=== PATIENT | male | born 1980 | race Two or more races ===

== ENCOUNTER 2019-09-12 14:11 | Inpatient (IN) | payer MEDICAID ==
[~2019-09-12] VITALS: Ht 154.9 cm; Wt 73.3 kg
--- NOTE | 2019-09-12 14:29 | NUR ---
PT AAOX4. AMBULATORY. PT C/O UPPER BACK PAIN 03/20 SHARP. RR EVEN AND UNLABORED. NO ACUTE DISTRESS NOTED.
--- NOTE | 2019-09-12 14:48 | NUR ---
Patient is resting comfortably in bed. Easily aroused. VSS.
--- NOTE | 2019-09-12 15:11 | NUR ---
PAGED CARDIO TO CALL US BACK
--- NOTE | 2019-09-12 15:19 | NUR ---
Diesel Mechanic at bedside for blood collection
[2019-09-12 15:22] LABS: BASOPHILS % (AUTO) 0.6 % (0.0-2.0); EOSINOPHILS % (AUTO) 0.9 % (0.0-6.0); HEMATOCRIT 48 % (39-51); HEMOGLOBIN 16.2 g/dL (13.5-17.5); LYMPHOCYTES # (AUTO) 1.3 /CMM (0.8-4.8); LYMPHOCYTES % (AUTO) 21.6 % (20.0-44.0); MEAN CORPUSCULAR HGB CONC 34 g/dl (31.0-36.0); MEAN CORPUSCULAR VOLUME 91 fL (80-96); MONOCYTES # (AUTO) 0.5 /CMM (0.1-1.30); MONOCYTES % (AUTO) 7.7 % (2.0-12.0); NEUTROPHILS # (AUTO) 4.1 /CMM (1.8-8.9); NEUTROPHILS % (AUTO) 69.2 % (43.0-81.0); PLATELET COUNT (AUTO) 240 /CMM (150-450)
--- NOTE | 2019-09-12 15:24 | NUR ---
Rad at bedside for Xray.
[2019-09-12 15:31] LABS: CALCIUM, SERUM 9.9 mg/dL (8.5-10.1); CARBON DIOXIDE 29 mmol/L (21-32); CHLORIDE 105 mmol/L (98-107); GLUCOSE 107 mg/dL (74-106); POTASSIUM 4.2 mmol/L (3.5-5.1); SODIUM SERUM 141 mmol/L (136-145); UREA NITROGEN, BLOOD 13 mg/dL (7-18)
--- NOTE | 2019-09-12 15:32 | NUR ---
AT [facility] SPEAKING TO PT.
--- NOTE | 2019-09-12 16:04 | NUR ---
URINE COLLECTED AND SENT TO LAB
--- NOTE | 2019-09-12 16:04 | NUR ---
PT DEDRA TO CT
[2019-09-12] MEDS ORDERED: IV NS 0.9% 250 ML IV ONE (16:09)
[2019-09-12] MEDS ORDERED: IOHEXOL-350 100 ML VIAL IV ONE (16:09)
[2019-09-12] MEDS ORDERED: CT SWABBABLE VALVE TRANS SET 1 EA INFUS.SET MC ONE (16:09)
--- NOTE | 2019-09-12 16:30 | NUR ---
PT IN BED RESTING. EASILY AROUSED. VSS.
--- NOTE | 2019-09-12 16:34 | NUR ---
PAGED ALEJO [phone] PER [facility]
[2019-09-12] MEDS ORDERED: NITROGLYCERIN PACKET 1 GM PACKET TOP ONE (17:00)
[2019-09-12] MEDS ORDERED: ASPIRIN 81 MG TAB.CHEW PO ONE (17:00)
[2019-09-12] MEDS ORDERED: NITROGLYCERIN PACKET 1 GM PACKET ONE (17:00)
[2019-09-12] MEDS ORDERED: ASPIRIN EC 81 MG TABLET.DR PO ONE (17:00)
--- NOTE | 2019-09-12 17:00 | NUR ---
FAXED EKG PER REQUEST TO [facility] [phone] SPOKE WITH [facility] @ [facility]
--- NOTE | 2019-09-12 17:00 | NUR ---
CALLED [facility] [phone] FAXED FACE SHEET [phone] SPOLE WITH [facility]
--- NOTE | 2019-09-12 17:04 | NUR ---
CONFIRMED THAT THEY RECIEVED FAX OF EKG AND WILL CALL US IN 5-10MINS
--- NOTE | 2019-09-12 17:16 | NUR ---
Patient is resting comfortably in bed. Easily aroused. VSS.
--- NOTE | 2019-09-12 17:19 | NUR ---
CALLED [facility] AGAIN AND THEY ARE REACHING [facility]
--- NOTE | 2019-09-12 17:25 | NUR ---
[facility] called for possible transfer, unable to accept because they are closed to stemi
--- NOTE | 2019-09-12 17:29 | NUR ---
CALL RECEIVED FROM ELIE RONDON, UNABLE TO ACCEPT BECAUSE DR CARMEN,CARDIO, SAID THAT IT'S NOT A STEMI AFTER EVALUATING EKG AND LABS SENT
--- NOTE | 2019-09-12 17:41 | NUR ---
PT RESTING COMFORTABLY. VSS. DAUGHTER AT BEDSIDE.
--- NOTE | 2019-09-12 17:45 | NUR ---
SUBMITTED MOVE SHEET
--- NOTE | 2019-09-12 18:15 | NUR ---
Patient is resting comfortably in bed. Easily aroused. VSS.
--- NOTE | 2019-09-12 19:04 | NUR ---
PT AMBULATED TO THE RESTROOM.
--- NOTE | 2019-09-12 19:44 | NUR ---
PT RESTING COMFORTABLY. DAUGHTER AT BEDSIDE.
--- NOTE | 2019-09-12 20:21 | NUR ---
BED ASSIGNMENT [id number]
[2019-09-12] MEDS ORDERED: ONDANSETRON HCL/PF 4 MG/2 ML VIAL IVP PRN (20:30)
[2019-09-12] MEDS ORDERED: MAG HYDROX/AL HYDROX/SIMETH 30 ML UDC PO PRN (20:30)
[2019-09-12] MEDS ORDERED: NITROGLYCERIN 0.4 MG/TAB BOTTLE SL PRN (20:30)
[2019-09-12] MEDS ORDERED: ACETAMINOPHEN 325 MG TABLET PO PRN (20:30)
--- NOTE | 2019-09-12 20:40 | NUR ---
REPORT GIVEN TO ASIA RONDON FOR PHIL.
[2019-09-12 21:00] VITALS: BP_SYST 121; BP_DIAS 70; BP_DIAS 74
[2019-09-12] MEDS ORDERED: ENOXAPARIN SODIUM 40 MG/0.4 ML DISP.SYRIN SQ SCH (21:00)
--- NOTE | 2019-09-12 21:00 | NUR ---
TELE/RN ADMITTING NOTES: REPORT GIVEN BY PA AT 2039. PATIENT ARRIVED TO THE UNIT AT 2100 VIA GURNEY ACCOMPANIED BY ER STAFF WITH ACLS PROTOCOL. PATIENT IS IN STABLE CONDITION. NO SOB NOTED, NO ACUTE S/S OF ACUTE DISTRESS. BREATHING EVEN AND UNLABORED. PATIENT IS AMBULATORY. NO COMPLAINS OF PAIN OR DISCOMFORT AT THIS TIME. VS STABLE AND WNL. DAUGHTER IS PRESENT AT THE BED SIDE. PATIENT IS A/OX4. PATIENT IS VERBALLY RESPONSIVE, ABLE TO MAKE NEEDS KNOWN. ANGOLAN SPEAKING, DAUGHTER HELPS TO TRANSLATE. ON TELE MONITORING WITH READING OF SR AND PAC WITH HR ON THE 70S. EXPLAINED THE PLAN OF CARE TO THE PATIENT. ON CARDIAC DIET. IV ACCESS IN ON THE RIGHT FA #20G AND RIGHT AC #20G. INTACT, PATENT, AND FLUSHING WELL. SKIN ASSESSMENT DONE, SKIN IS INTACT. BELONGINGS LIST CHECKED BY AUTOMATED TELLER MANAGER. DAUGHTER STATED THAT WILL TAKE EVERYTHING HOME WHEN SHE GETS TO THE HOSPITAL. SAFETY MEASURES ARE INITIATED, BED IS IN THE LOWEST POSITION, LOCKED, WITH HOB ELEVATED, SIDE RAILS UPX2. KEPT PATIENT WARM AND COMFORTABLE FOR NOW. ALL NURSING NEEDS MET AND PROVIDED AT THIS TIME. CALL LIGHT IS WITHIN REACH. WILL CONTINUE MONITORING PATIENT ACCORDINGLY.
--- NOTE | 2019-09-12 21:08 | NUR ---
PT TRANSFERED PER ACLS PROTOCOL.
[2019-09-12] MEDS ORDERED: SIMVASTATIN 20 MG TABLET PO SCH (22:00)
[2019-09-13] VITALS: BP 112/69
[2019-09-13 00:01] VITALS: BP 112/69
[2019-09-13 04:00] VITALS: BP 122/76
[2019-09-13 04:45] VITALS: BP 122/76
--- NOTE | 2019-09-13 06:30 | NUR ---
TELE/RN CLOSING NOTES: PATIENT IS IN STABLE CONDITION. A/OX4. NO SOB NOTED, NO ACUTE S/S OF ACUTE DISTRESS. BREATHING EVEN AND UNLABORED. NO COMPLAINS OF PAIN OR DISCOMFORT AT THIS TIME. VS STABLE AND WNL. PATIENT IS VERBALLY RESPONSIVE, ABLE TO MAKE NEEDS KNOWN. ON TELE MONITORING WITH READING OF SR AND PAC WITH HR ON THE 70S. IV ACCESS IN ON THE RIGHT FA #20G AND RIGHT AC #20G. INTACT, PATENT, AND FLUSHING WELL.ALL DUE MEDS GIVEN ORDERED, TOLERATED WELL. SAFETY MEASURES ARE INITIATED, BED IS IN THE LOWEST POSITION, LOCKED, WITH HOB ELEVATED, SIDE RAILS UPX2. KEPT PATIENT WARM AND COMFORTABLE FOR NOW. ALL NURSING NEEDS MET AND PROVIDED. CALL LIGHT IS WITHIN REACH. WILL ENDORSE TO DAY SHIFT NURSE FOR PHIL.
[2019-09-13 07:58] LABS: CALCIUM, SERUM 8.8 mg/dL (8.5-10.1); CREATININE 0.9 mg/dL (0.6-1.3); MAGNESIUM 2.1 mg/dL (1.8-2.4)
--- NOTE | 2019-09-13 08:00 | NUR ---
TELE/RN AM NOTES: PATIENT A/OX4. NO SOB NOTED, NO ACUTE S/S OF ACUTE DISTRESS. BREATHING EVEN AND UNLABORED. NO COMPLAINS OF PAIN OR DISCOMFORT AT THIS TIME. VS STABLE AND WNL. PATIENT IS VERBALLY RESPONSIVE, ABLE TO MAKE NEEDS KNOWN. ON TELE MONITORING WITH READING OF SR WITH HR 70S. IV ACCESS IN ON THE RIGHT FA #20G AND RIGHT AC #20G. INTACT, PATENT, AND FLUSHING WELL.WITH BRP.DAUGHTER AT BEDSIDE. SAFETY MEASURES ARE INITIATED, BED IS IN THE LOWEST POSITION, LOCKED, WITH HOB ELEVATED, SIDE RAILS UPX2. KEPT PATIENT WARM AND COMFORTABLE FOR NOW. CALL LIGHT IS WITHIN REACH.
[2019-09-13] MEDS ORDERED: ASPIRIN 81 MG TAB.CHEW PO SCH (09:00)
[2019-09-13] MEDS ORDERED: ASPIRIN 325 MG TABLET PO SCH (09:00)
[2019-09-13] MEDS ORDERED: CT SWABBABLE VALVE TRANS SET 1 EA INFUS.SET MC ONE (11:15)
[2019-09-13] MEDS ORDERED: IV NS 0.9% 250 ML IV ONE (11:15)
[2019-09-13] MEDS ORDERED: IOHEXOL-350 100 ML VIAL IV ONE (11:15)
[2019-09-13] MEDS ORDERED: NITROGLYCERIN 0.4 MG/TAB BOTTLE ONE (11:15)
[2019-09-13] MEDS ORDERED: METOPROLOL TARTRATE INJ 5 MG/5 ML AMPUL ONE ×4 (11:15→12:13)
[2019-09-13] MEDS ORDERED: IV NS 0.9% 500 ML IV ONE (13:30)
[2019-09-13] MEDS ORDERED: NITROGLYCERIN 0.4 MG/TAB BOTTLE SL ONE (13:30)
[2019-09-13] MEDS ORDERED: METOPROLOL TARTRATE INJ 5 MG/5 ML AMPUL IVP ONE (13:30)
--- NOTE | 2019-09-13 18:20 | NUR ---
DISCHARGED PT HOME WITH STABLE V/S.IV H/L TO RFA AND RT AC REMOVED.DENIES ANY CHEST PAIN OR DISTRESS.ACCOMPANIED BY HIS .DISCHARGE INSTRUCTIONS AND INSTRUCTED PT TO F/U CT [facility] IN 1 YR.
== END 2019-09-13 18:26 | disposition home or self-care (01) | DRG 203 ==
LOC: ER 14:11 → TELE 20:27
PROVIDERS: ADMIT Registered Nurse
DX: R07.89 Other chest pain (principal); E27.8 Other specified disorders of adrenal gland; E66.9 Obesity, unspecified; M54.9 Dorsalgia, unspecified; G89.29 Other chronic pain; F41.9 Anxiety disorder, unspecified; R94.31 Abnormal electrocardiogram [ECG] [EKG]; Z68.30 Body mass index [BMI] 30.0-30.9, adult; M43.14 Spondylolisthesis, thoracic region
CPT/HCPCS: 36415; 71045-TC; 75574; 80048-TC; 80305; 83735-TC; 84484-TC; 85025-TC; 87081-TC; 93307-TC; G0378; J1650; J3490; J7050; Q9967

== ENCOUNTER 2021-09-17 09:19 | Emergency (ER) | payer MEDICAID ==
[~2021-09-17] VITALS: Ht 167.6 cm; Wt 77.1 kg
--- NOTE | 2021-09-17 09:37 | NUR ---
BIBS FOR C/O BACK PAIN 04/19 ON AND OFF X 2 WEEKS. NO TRAUMA. DENIES COUGH AND CONGESTION. WILL CONTINUE TO MONITOR THE PATIENT.
--- NOTE | 2021-09-17 09:41 | NUR ---
PT CAME TO ER C/O MID BACK PAIN X 2 WEEKS, RATED 8/10. DENIES TRAUMA. AAOX4, AMBULATORY, BREATHING EVEN AND UNLABORED. AWAITING MD FOR EVAL
[2021-09-17] MEDS ORDERED: KETOROLAC TROMETHAMINE INJ 30 MG/ML VIAL ONE (09:59)
[2021-09-17] MEDS ORDERED: CYCLOBENZAPRINE 10 MG TABLET ONE (09:59)
[2021-09-17] MEDS ORDERED: CYCLOBENZAPRINE 10 MG TABLET PO ONE (10:00)
[2021-09-17] MEDS ORDERED: KETOROLAC TROMETHAMINE INJ 60 MG/2 ML VIAL IM ONE (10:00)
[2021-09-17] MEDS ORDERED: CYCL5TAB PO (10:16)
[2021-09-17] MEDS ORDERED: IBUP-1957 PO (10:16)
[2021-09-17 11:07] VITALS: BP 131/76
--- NOTE | 2021-09-17 11:07 | NUR ---
Patient discharged to home in stable condition. Written and verbal after care instructions given. Patient verbalizes understanding of instruction.
== END 2021-09-17 11:07 | disposition home or self-care (01) ==
LOC: ER 09:28
DX: S23.3XXA Sprain of ligaments of thoracic spine, initial encounter (principal); X58.XXXA Exposure to other specified factors, initial encounter; Y93.89 Activity, other specified; Y92.89 Other specified places as the place of occurrence of the external cause; Y99.8 Other external cause status
CPT/HCPCS: 71045; 96372; 99283; J1885

== ENCOUNTER 2022-07-07 12:34 | Emergency (ER) | payer MEDICAID ==
[~2022-07-07] VITALS: Ht 154.9 cm; Wt 73.9 kg
[~2022-07-07 12:34] MED LIST: CYCL5TAB PO; IBUP-1957 PO
--- NOTE | 2022-07-07 12:45 | NUR ---
BIBS C/O WORSENING UPPER BACK PAIN X 3 WEEKS. WORST TODAY. AMBULATORY, PLACED ON BED, AAOX4, IN PAIN 8 PS. SEEN AND EXAMINED BY DR PEREZ.
[2022-07-07] MEDS ORDERED: KETOROLAC TROMETHAMINE INJ 30 MG/ML VIAL ONE (12:55)
[2022-07-07] MEDS ORDERED: CYCLOBENZAPRINE 10 MG TABLET ONE (12:55)
[2022-07-07] MEDS ORDERED: CYCLOBENZAPRINE 10 MG TABLET PO ONE (13:00)
[2022-07-07] MEDS ORDERED: KETOROLAC TROMETHAMINE INJ 30 MG/ML VIAL IM ONE (13:00)
[2022-07-07] MEDS ORDERED: KETO10TA2 PO (13:51)
[2022-07-07] MEDS ORDERED: CYCL5TAB PO (13:51)
--- NOTE | 2022-07-07 14:01 | NUR ---
Patient discharged to home in stable condition. Written and verbal after care instructions given. Patient verbalizes understanding of instruction.
[2022-07-07 14:02] VITALS: BP 145/90
== END 2022-07-07 14:00 | disposition home or self-care (01) ==
LOC: ER 12:40
DX: M54.6 Pain in thoracic spine (principal); Z79.899 Other long term (current) drug therapy
CPT/HCPCS: 99283; 96372; J1885

== ENCOUNTER 2023-10-22 09:30 | Emergency (ER) | payer MEDICAID ==
[~2023-10-22] VITALS: Ht 157.5 cm; Wt 68.0 kg
[~2023-10-22 09:30] MED LIST changes: +KETO10TA2 PO
[2023-10-22 09:45] VITALS: TEMP 98.1
[2023-10-22] MEDS ORDERED: KETOROLAC TROMETHAMINE 15 MG/ML VIAL IM ONE (10:30)
[2023-10-22] MEDS ORDERED: KETOROLAC TROMETHAMINE 15 MG/ML VIAL ONE (10:32)
[2023-10-22] MEDS ORDERED: IBUP-1955 PO (10:40)
[2023-10-22 10:55] VITALS: BP 131/82
[2023-10-22 11:00] VITALS: O2SAT 99
== END 2023-10-22 11:07 | disposition home or self-care (01) ==
LOC: ER 09:30
DX: M54.2 Cervicalgia (principal)
CPT/HCPCS: 99283; 96372; J1885